=== PATIENT | female | born 2000 | race American Indian/Alaskan Native ===

== ENCOUNTER 2021-06-27 23:21 | Emergency (ER) | payer SELFPAY ==
[2021-06-28 00:12] VITALS: BP 151/83
[2021-06-28] MEDS ORDERED: SODIUM CHLORIDE 0.9% 1000 ML 1,000 ML IV ONE (00:22)
[2021-06-28] MEDS ORDERED: ONDANSETRON 4 MG/2 ML INJ IV NR (00:22)
[2021-06-28 01:16] LABS: Basophils % (Auto) 0.5 % (0.0-1.8); Eosinophils # (Auto) 0.2 K/mm3 (0.0-0.4); Eosinophils % (Auto) 4.1 % (0.0-4.3); Hematocrit 34.6 % (30.3-42.9); Hemoglobin 11.7 gm/dl (10.1-14.3); Lymphocytes # (Auto) 2.1 K/mm3 (1.2-5.4); Lymphocytes % (Auto) 45.3 % (13.4-35.0); Mean Corpuscular HGB Conc 34 % (30-34); Mean Corpuscular Volume 92 fl (79-97); Monocytes # (Auto) 0.6 K/mm3 (0.0-0.8); Monocytes % (Auto) 11.7 % (0.0-7.3); Platelet Count 352 K/mm3 (140-440); Red Blood Count 3.77 M/mm3 (3.65-5.03); Red Cell Distribution Width 12.6 % (13.2-15.2)
[2021-06-28] MEDS ORDERED: ONDANSETRON 4 MG/2 ML INJ ONE (01:16)
[2021-06-28] MEDS ORDERED: SODIUM CHLORIDE 0.9% 1000 ML 1,000 ML ONE (01:16)
[2021-06-28] MEDS ORDERED: FAMOTIDINE 20 MG/2 ML INJ IV ONE (01:16)
[2021-06-28] MEDS: FAMOTIDINE 20 MG/2 ML INJ IV NR ×2 (01:19→04:37)
[2021-06-28 01:21] LABS: Alanine Aminotransferase 11 units/L (7-56); Albumin 4.4 g/dL (3.9-5); BUN/Creatinine Ratio 16; Blood Urea Nitrogen 13 mg/dL (7-17); Calcium 9.6 mg/dL (8.4-10.2); Hemolysis Index 10
[2021-06-28 02:45] LABS: Bilirubin,Urine NEG (Negative); Blood,Urine NEG (Negative); Color,Urine Yellow (Yellow); Mucus,Urine 2+ /HPF; Protein,Urine <15 mg/dL mg/dL (Negative); Urobilinogen,Urine < 2.0 mg/dL (<2.0)
--- NOTE | 2021-06-28 03:22 | Cat Scan Report ---
CT ABDOMEN AND PELVIS WITH CONTRAST INDICATION / CLINICAL INFORMATION: Abdominal pain.. TECHNIQUE: Axial CT images were obtained through the abdomen and pelvis after IV contrast. All CT sc ans at this location are performed using CT dose reduction for ALARA by means of automated exposure c ontrol. COMPARISON: None available. FINDINGS: LOWER CHEST: No significant abnormality. LIVER: No significant abnormality. GALLBLADDER: No significant abnormality. BILE DUCTS: No significant abnormality. PANCREAS: No significant abnormality. SPLEEN: No significant abnormality. ADRENALS: No significant abnormality. RIGHT KIDNEY / URETER: 4 mm nonobstructing stone in the lower pole. No ureteral stone or hydronephros is. LEFT KIDNEY / URETER: No significant abnormality. STOMACH / SMALL BOWEL: Fluid-filled, nondilated loops of distal small bowel. COLON: No significant abnormality. APPENDIX: No significant abnormality. PERITONEUM: No free fluid. No free air. No fluid collection. LYMPH NODES: No significant adenopathy. AORTA / ARTERIES: No significant abnormality. IVC / VEINS: No significant abnormality. URINARY BLADDER: No significant abnormality. REPRODUCTIVE ORGANS: No acute abnormality. Tampon in vagina. ADDITIONAL FINDINGS: None. SKELETAL SYSTEM: No significant abnormality. IMPRESSION: 1. No inflammatory process or bowel obstruction. Fluid-filled, nondilated small bowel can be seen in the setting of enteritis. 2. Right nephrolithiasis but no ureteral stone or hydronephrosis. Signer Name: David Duran MD Signed: 06/28/2021 3:17 AM Workstation Name: [id number]
[2021-06-28] MEDS ORDERED: MORPHINE 4 MG/1 ML INJ IV ONE (03:41)
[2021-06-28] MEDS ORDERED: ONDANSETRON 4 MG/2 ML INJ IV ONE (03:41)
[2021-06-28] MEDS ORDERED: KETOROLAC 30 MG/1 ML INJ IV ONE (03:42)
--- NOTE | 2021-06-28 04:52 | Emergency Department Report ---
ED Abdominal Pain HPI - General Chief Complaint: Abdominal Pain Stated Complaint: STOMACH PAIN/LIGHT HEADED/WEAK Time Seen by Provider: 06/27/21 23:25 Source: patient Mode of arrival: Ambulatory Limitations: No Limitations - History of Present Illness Initial Comments: Patient is a nulliparous 21-year-old -[place] female with no past medical history who presents to the ED with complaint of acute onset persistent intermittent periumbilical abdominal pain with nausea and vomiting and syncopal episodes for the last 3 weeks, worse in the last 3 days. Patient states that the last time she had seen the symptoms was 24 hours ago where she syncopized while going to the bathroom. Patient states that the pain is intermittent intermittent and whenever it occurs it is followed by a syncopal episode because of the severity of the pain. Patient states that the syncope has been due to pain as well as nausea and vomiting. Patient denies fever, chills, vaginal bleeding, vaginal discharge, dysuria, urinary frequency and urgency, chest pain or shortn ess of breath, headache, dizziness, change in vision, seizures, sore throat or low back pain. MD Complaint: abdominal pain, flank pain, other (Nausea and vomiting; syncope) -: Sudden, week(s) (3) Location: periumbilical Radiation: R flank Migration to: no migration Severity scale (0 -10): 8 Quality: cramping, sharp Consistency: intermittent Improves With: nothing Worsens With: vomiting Associated Symptoms: denies other symptoms, nausea, vomiting, anorexia, syncope. denies: diarrhea, fever, chills, dysuria, hematemesis, hematochezia, melena, hematuria - Related Data LMP Date: 06/23/21 Previous Rx's Medication Instructions Recorded Last Taken Type Dicyclomine [Bentyl] 20 mg PO Q6H PRN #30 tablet 06/28/21 Unknown Rx Ketorolac [Toradol] 10 mg PO Q8H PRN #15 tablet 06/28/21 Unknown Rx Ondansetron [Zofran Odt] 4 mg PO Q6HR PRN #20 tab.rapdis 06/28/21 Unknown Rx Tamsulosin [Flomax] 0.4 mg PO QDAY #14 cap 06/28/21 Unknown Rx Allergies Allergy/AdvReac Type Severity Reaction Status Date / Time No Known Allergies Allergy Verified 06/28/21 01:14 ED Review of Systems ROS: Stated complaint: STOMACH PAIN/LIGHT HEADED/WEAK Other details as noted in HPI Constitutional: denies: chills, fever Eyes: denies: eye pain, eye discharge, vision change ENT: denies: ear pain, throat pain Respiratory: denies: cough, shortness of breath, wheezing Cardiovascular: syncope. denies: chest pain, palpitations Endocrine: no symptoms reported Gastrointestinal: abdominal pain, nausea, vomiting. denies: diarrhea Genitourinary: denies: urgency, dysuria, discharge Musculoskeletal: denies: back pain, joint swelling, arthralgia Skin: denies: rash, lesions Neurological: denies: headache, weakness, paresthesias Psychiatric: denies: anxiety, depression Hematological/Lymphatic: denies: easy bleeding, easy bruising ED Past Medical Hx - Past Medical History Previous Medical History?: No - Surgical History Past Surgical History?: No - Medications Home Medications: Home Medications Medication Instructions Recorded Confirmed Last Taken Type Dicyclomine [Bentyl] 20 mg PO Q6H PRN #30 tablet 06/28/21 Unknown Rx Ketorolac [Toradol] 10 mg PO Q8H PRN #15 tablet 06/28/21 Unknown Rx Ondansetron [Zofran Odt] 4 mg PO Q6HR PRN #20 tab.rapdis 06/28/21 Unknown Rx Tamsulosin [Flomax] 0.4 mg PO QDAY #14 cap 06/28/21 Unknown Rx ED Physical Exam - General Limitations: No Limitations General appearance: alert, in no apparent distress - Head Head exam: Present: atraumatic, normocephalic, normal inspection - Eye Eye exam: Present: normal appearance, PERRL, EOMI Pupils: Present: normal accommodation - ENT ENT exam: Present: normal exam, normal orophraynx, mucous membranes moist, TM's normal bilaterally, normal external ear exam - Neck Neck exam: Present: normal inspection, full ROM - Respiratory Respiratory exam: Present: normal lung sounds bilaterally. Absent: respiratory distress, wheezes, rales, rhonchi, chest wall tenderness, accessory muscle use, decreased breath sounds, prolonged expiratory - Cardiovascular Cardiovascular Exam: Present: regular rate, normal rhythm, normal heart sounds. Absent: systolic murmur, diastolic murmur, rubs, gallop - GI/Abdominal GI/Abdominal exam: Present: soft, tenderness (Palpable mild periumbilical tenderness), normal bowel sounds. Absent: guarding, rebound, hyperactive bowel sounds, hypoactive bowel sounds - Bi-manual exam: Present: other (Pelvic exam deferred at this time) - Extremities Exam Extremities exam: Present: normal inspection, full ROM, normal capillary refill - Back Exam Back exam: Present: normal inspection, full ROM. Absent: tenderness, CVA tenderness (L), paraspinal tenderness, vertebral tenderness - Neurological Exam Neurological exam: Present: alert, oriented X3, CN II-XII intact, normal gait, reflexes normal - Psychiatric Psychiatric exam: Present: normal affect, normal mood - Skin Skin exam: Present: warm, dry, intact, normal color. Absent: rash ED Course Vital Signs 06/28/21 06/28/21 00:10 04:37 Temperature 98.0 F Pulse Rate 75 Respiratory 18 18 Rate Blood Pressure 151/83 O2 Sat by Pulse 99 Oximetry ED Medical Decision Making - Lab Data Result diagrams: 06/28/21 00:30 06/28/21 00:30 - Radiology Data Radiology results: report reviewed, image reviewed [place] [id number] Cat Scan Report Signed Patient: PATIENCE DINERO MR#: [id number] : 2000 Acct:[id number] Age/Sex: 21 / F ADM Date: 06/27/21 Loc: ED Attending Dr: Ordering Physician: ASIM DAVISON Date of Service: 06/28/21 Procedure(s): CT abdomen pelvis w con Accession Number(s): [id number] cc: ASIM DAVISON CT ABDOMEN AND PELVIS WITH CONTRAST INDICATION / CLINICAL INFORMATION: Abdominal pain.. TECHNIQUE: Axial CT images were obtained through the abdomen and pelvis after IV contrast. All CT scans at this location are performed using CT dose reduction for ALARA by means of automated exposure control. COMPARISON: None available. FINDINGS: LOWER CHEST: No significant abnormality. LIVER: No significant abnormality. GALLBLADDER: No significant abnormality. BILE DUCTS: No significant abnormality. PANCREAS: No significant abnormality. SPLEEN: No significant abnormality. ADRENALS: No significant abnormality. RIGHT KIDNEY / URETER: 4 mm nonobstructing stone in the lower pole. No ureteral stone or hydronephrosis. LEFT KIDNEY / URETER: No significant abnormality. STOMACH / SMALL BOWEL: Fluid-filled, nondilated loops of distal small bowel. COLON: No significant abnormality. APPENDIX: No significant abnormality. PERITONEUM: No free fluid. No free air. No fluid collection. LYMPH NODES: No significant adenopathy. AORTA / ARTERIES: No significant abnormality. IVC / VEINS: No significant abnormality. URINARY BLADDER: No significant abnormality. REPRODUCTIVE ORGANS: No acute abnormality. Tampon in vagina. ADDITIONAL FINDINGS: None. SKELETAL SYSTEM: No significant abnormality. IMPRESSION: 1. No inflammatory process or bowel obstruction. Fluid-filled, nondilated small bowel can be seen in the setting of enteritis. 2. Right nephrolithiasis but no ureteral stone or hydronephrosis. Signer Name: David Duran MD Signed: 06/28/2021 3:17 AM Workstation Name: [id number] Transcribed By: MARK Dictated By: Shiraz Duran MD Electronically Authenticated By: Shiraz Duran MD Signed Date/Time: 06/28/21316 DD/ 4 TD/TT: - Medical Decision Making This is a nulliparous 21-year-old -[place] female with no past medical history who presents to the ED with complaint of acute onset persistent intermittent periumbilical abdominal pain with nausea and vomiting and syncopal episodes for the last 3 weeks, worse in the last 3 days. Patient states that the last time she had seen the symptoms was 24 hours ago where she syncopized while going to the bathroom. Patient states that the pain is intermittent intermittent and whenever it occurs it is followed by a syncopal episode because of the severity of the pain. Patient states that the syncope has been due to pain as well as nausea and vomiting. In the ED, patient is alert and oriented x3 and is not in any distress. Patient was treated in the ED for pain and also given antiemetics and normal saline 1 L IV bolus x1. Lab test results were reviewed and are all nonactionable. Abdomen pelvis CT scan with contrast showed no inflammatory process or bowel obstruction. Fluid-filled, nondilated small bowel can be seen in the setting of enteritis. In addition it also showed right nephrolithiasis but no ureteral stone or hydronephrosis. On reevaluation, patient's pain is well controlled medication. Patient was discharged home on medications and advised to follow-up with her primary care physician in 5 to 7 days for reevaluation or return to the ED immediately if symptoms get worse. - Differential Diagnosis Appendicitis; ; UTI; ovarian cyst; kidney stone; Critical care attestation.: If time is entered above; I have spent that time in minutes in the direct care of this critically ill patient, excluding procedure time. ED Disposition Clinical Impression: Abdominal pain in female patient, Nausea and vomiting in adult patient, Vasovagal syncopes, Kidney stone on right side Disposition: HOME / SELF CARE / HOMELESS Is pt being admited?: No Does the pt Need Aspirin: No Condition: Stable Instructions: Abdominal Pain (ED), Syncope (ED), Abdominal Pain, Adult, [id number], Nausea and Vomiting, Adult, [id number], Syncope, [id number], Kidney Stones, [id number] Additional Instructions: All lab test results were reviewed and are all nonactionable. Abdomen pelvis CT scan with contrast showed no acute abnormalities except for kidney stones on the right and no inflammatory process or bowel obstruction. Fluid-filled, nondilated small bowel can be seen in the setting of enteritis. Therefore take medication as needed for pain, drink plenty of fluids and follow-up with your primary care physician in 5 to 7 days for reevaluation. Return to the ED immediately if symptoms get worse. Prescriptions: Dicyclomine [Bentyl] 20 mg PO Q6H PRN #30 tablet PRN Reason: Abdominal pain Tamsulosin [Flomax] 0.4 mg PO QDAY #14 cap Ketorolac [Toradol] 10 mg PO Q8H PRN #15 tablet PRN Reason: Pain Ondansetron [Zofran Odt] 4 mg PO Q6HR PRN #20 tab.rapdis PRN Reason: Nausea Forms: Work/School Release Form(ED) Time of Disposition: 04:53 Print Language: IRANIAN
--- NOTE | 2021-06-29 11:44 | Electrocardiograph Report ---
[facility] Test Date: 2021-06-28 Test Time: 05:01:00 Pat Name: PATIENCE DINERO Department: Room: Gender: F Simulation Specialist: [id number] : 2000 Requested By: ORLANDO BRAND Order Number: [id number] Reading MD: Fidel Wallace Measurements Intervals [employer] Rate: 58 P: 32 MI: 184 QRS: 42 QRSD: 74 T: 32 QT: 434 QTc: 426 Interpretive Statements Sinus rhythm No previous ECG available for comparison Electronically Signed On 06-29-2021 11:44:08 EST by Fidel Wallace
== END 2021-06-28 08:24 | disposition home or self-care (01) ==
LOC: ED 23:21
DX: N20.0 Calculus of kidney (principal); R55 Syncope and collapse; Z79.899 Other long term (current) drug therapy
CPT/HCPCS: 36415; 74177; 80053; 81001; 83690; 84484; 84703; 85025; 93005; 96374; 96375; 96376; 99284; J1885; J2405; J7030; Q9967